=== PATIENT | female | born 1940 | race Caucasian/White ===

== ENCOUNTER → 2021-04-21 | Day surgery (SDC) | payer MEDICARE ==
[~2021-04-21] VITALS: Ht 167.6 cm; Wt 83.6 kg
[~2021-04-21] MED LIST: AMLO-186 PO; ASPI-886 PO; DEXAMETHASONE SOD PHOS 4 MG/ML VIAL ONE; IV RINGERS,LACTATED 1000ML 1,000 ML IV ONE; LOSA100T14 PO; ONDANSETRON PF 4 MG/2 ML VIAL. ONE; PROPOFOL 10 MG/ML (20ML) VIAL. IV ONE
[2021-04-21 07:13] VITALS: BP 152/70
[2021-04-21 09:15] VITALS: BP 141/70
== END | disposition home or self-care (01) ==
LOC: ENDOS 06:41
PROVIDERS: ATTEND Internal Medicine Gastroenterology
DX: R19.4 Change in bowel habit (principal); K64.0 First degree hemorrhoids; K57.30 Diverticulosis of large intestine without perforation or abscess without bleeding; R13.10 Dysphagia, unspecified; K29.50 Unspecified chronic gastritis without bleeding; K63.89 Other specified diseases of intestine; K31.89 Other diseases of stomach and duodenum; K21.9 Gastro-esophageal reflux disease without esophagitis; J44.9 Chronic obstructive pulmonary disease, unspecified; Z90.49 Acquired absence of other specified parts of digestive tract; Z98.890 Other specified postprocedural states; Z90.710 Acquired absence of both cervix and uterus; Z79.82 Long term (current) use of aspirin; Z79.899 Other long term (current) drug therapy
CPT/HCPCS: 43235; 43450; 45378; J1100; J2405; J2704